=== PATIENT | female | born 1985 | race Two or more races ===

== ENCOUNTER 2025-01-01 14:52 | Emergency (ER) | payer MEDICAID ==
[~2025-01-01] VITALS: Ht 154.9 cm; Wt 68.0 kg
[2025-01-01 14:58] VITALS: TEMP 98.1
[2025-01-01 15:43] LABS: PLATELET COUNT (AUTO) 228 K/uL (150-450); RED BLOOD CELL COUNT(AUTO) 4.75 MIL/uL (4.0-5.2); RED CELL DISTRIBUTION WIDTH 13.0 % (11.5-15.0); WHITE BLOOD COUNT (AUTO) 5.4 K/uL (4.3-11.0)
[2025-01-01 15:52] LABS: CALCIUM, SERUM 9.1 mg/dL (8.5-10.1); CREATININE 0.7 mg/dL (0.6-1.3); SODIUM SERUM 135.0 mmol/L (136-145); UREA NITROGEN, BLOOD 12.0 mg/dL (7-18)
[2025-01-01 15:58] LABS: ASPARTATE AMINOTRANSFERASE 681.0 U/L (15-37); TOTAL PROTEIN, SERUM 7.7 g/dL (6.4-8.2)
[2025-01-01] MEDS ORDERED: MORPHINE SULFATE INJ 4 MG/ML DISP.SYRIN ONE (16:10)
[2025-01-01] MEDS ORDERED: ONDANSETRON HCL/PF 4 MG/2 ML VIAL ONE ×2 (16:10→21:28)
[2025-01-01] MEDS: IV NS 0.9% 1,000 ML BAG IV ONE ×2 (16:20→21:35)
[2025-01-01] MEDS: ONDANSETRON HCL/PF 4 MG/2 ML VIAL IV ONE ×2 (16:20→21:35)
[2025-01-01] MEDS: MORPHINE SULFATE INJ 2 MG/ML DISP.SYRIN IV ONE (16:23)
[2025-01-01] MEDS ORDERED: IOHEXOL-300 100 ML VIAL IV ONE (16:45)
[2025-01-01] MEDS ORDERED: IV NS 0.9% 250 ML IV ONE (16:45)
[2025-01-01] MEDS: HYDROMORPHONE 1 MG/1 ML DISP.SYRIN IV ONE ×2 (17:30→21:35)
[2025-01-01 19:02] LABS: APPEARANCE,URINE CLEAR (CLEAR); BLOOD, URINE Trace-intact Ery/uL (NEGATIVE); LEUKOCYTE ESTERASE ,URINE Negative (NEGATIVE); NITRITE, URINE NEGATIVE (NEGATIVE); UGLUCOSE Negative (NEGATIVE)
[2025-01-01 19:04] LABS: ADD URINE CULTURE NO; SQUAMOUS EPITHELIAL CELL,UR Few /HPF (None Seen)
[2025-01-01] MEDS ORDERED: HYDROMORPHONE 1 MG/1 ML DISP.SYRIN ONE (21:28)
[2025-01-01 22:00] VITALS: BP 124/75; O2SAT 97
== END 2025-01-01 23:12 | disposition short-term general hospital (02) ==
LOC: ER 15:11
DX: K85.90 Acute pancreatitis without necrosis or infection, unspecified (principal); K76.0 Fatty (change of) liver, not elsewhere classified; N83.12 Corpus luteum cyst of left ovary; Z90.49 Acquired absence of other specified parts of digestive tract
CPT/HCPCS: 99285; 74177; 76705; 96374; 96361; 96375; 76856; 85025; 80048; 83690; 80076; 81001; 36415; 84702; J2270; J2405 ×2; J7030 ×2; J7050; Q9967; J1171 ×2